=== PATIENT | male | born 1995 | race Caucasian/White ===

== ENCOUNTER 2017-10-01 23:50 | Emergency (ER) | payer SELFPAY ==
[2017-10-02] MEDS ORDERED: Ketorolac Tromethamine 30 MG/ML VIAL ONE (00:44)
== END 2017-10-02 01:15 | disposition home or self-care (01) ==
LOC: ERS 23:50
DX: K04.7 Periapical abscess without sinus (principal); I88.9 Nonspecific lymphadenitis, unspecified; F15.10 Other stimulant abuse, uncomplicated; Z87.891 Personal history of nicotine dependence
CPT/HCPCS: 96372; J1885